=== PATIENT | male | born 1995 | race Caucasian/White ===

== ENCOUNTER 2017-11-07 00:22 | Emergency (ER) | payer OTHER ==
[~2017-11-07] VITALS: Ht 177.8 cm; Wt 91.0 kg
[2017-11-07 00:24] VITALS: BP 128/86; PULSE 88; RESP 16; TEMP 97.9; O2SAT 98
--- NOTE | 2017-11-07 00:55 | PD ---
HPI Chief Complaint: Injury Time Seen by Provider: 00:45 Travel History International Travel<30 days: No Contact w/Intl Traveler<30days: No Traveled to known affect area: No History of Present Illness HPI 22-year-old male presents to the emergency department for evaluation of acute onset left anterior hip pain. Patient states that he jumped into the back of a truck and believes he may have pulled a muscle. This happened at work yesterday. He states he is unable to work today due to the significant amount of pain, mostly with ambulation. Patient has history of hip dysplasia but reports no limitations in range of motion of the hips at this time. Pain is a 6 out of 10. Patient has had no fever or chills. No urinary symptoms. No other symptoms to report. PFSH Social History Tobacco Use: No Allergies-Medications (Allergen,Severity, Reaction): Coded Allergies: No Known Allergies (Unverified , 11/07/17) Reported Meds & Prescriptions Reported Meds & Active Scripts Active Ibuprofen 800 Mg Tab 800 Mg PO Q8H PRN Review of Systems Except as stated in HPI: all other systems reviewed are Neg Physical Exam Narrative GENERAL: Well-nourished, well-developed ill patient, ambulatory no acute distress. SKIN: Focused skin assessment warm/dry. HEAD: Normocephalic. EYES: No scleral icterus. No injection or drainage. NECK: Supple, trachea midline. No JVD or lymphadenopathy. CARDIOVASCULAR: Regular rate and rhythm without murmurs, gallops, or rubs. RESPIRATORY: Breath sounds equal bilaterally. No accessory muscle use. Abdomen: Abdomen soft, non-tender, nondistended. Positive bowel sounds. No hepato-splenomegaly, or palpable masses. No guarding. MUSCULOSKELETAL: No cyanosis, or edema. Tenderness was to palpation over the left hip flexor. Patient has full flexion-extension of the left hip. Distal pulses are palpable. Cap refill is within normal limits. BACK: Nontender without obvious deformity. No CVA tenderness. Data Data Last Documented VS Vital Signs Date Time Temp Pulse Resp B/P (MAP) Pulse Ox O2 Delivery O2 Flow Rate FiO2 11/07/17 02:55 11/07/17 01:20 Room Air 11/07/17 00:24 97.9 88 16 98 Orders Orders Ketorolac Inj (Toradol Inj) (11/07/17 01:00) Hip, Uni(Ap&Lat) W Ap Pelvis (11/07/17 ) Ed Discharge Order (11/07/17 02:31) [facility] Medical Decision Making Medical Screen Exam Complete: Yes Emergency Medical Condition: Yes Medical Record Reviewed: Yes Differential Diagnosis Muscle strain versus discogenic pain versus fracture versus contusion Narrative Course 22-year-old male presents to the emergency department for evaluation a left anterior hip pain. Physical exam and history are consistent with a hip flexor strain. X-ray imaging confirms no acute bony normality. Patient does have bilateral hip dysplasia as he is already aware of. Patient was treated for pain. Upon reassessment he does report much improvement in his symptoms. Patient is counseled on care. He agrees to return immediately to [facility] department with any acute worsening symptoms. Diagnosis Primary Impression: Strain of flexor muscle of left hip Qualified Codes: S76.012A - Strain of muscle, fascia and tendon of left hip, initial encounter Referrals: Primary Care Physician Patient Instructions: General Instructions, Muscle Strain (ED) Departure Forms: Tests/Procedures, Work Release Enter return to work date: Nov 10, 2017 Additional Instructions: Ice and/or warm received may help to alleviate symptoms Avoid overuse of the muscle Follow-up with a primary care provider Seek orthopedic evaluation if symptoms persist Return immediately with any acute worsening of symptoms Med/Other Pt SpecificInfo: Prescription(s) given Scripts Ibuprofen (Ibuprofen) 800 Mg Tab 800 MG PO Q8H Y for Pain/Inflammation, #30 TAB 0 Refills Prov: Gabby Lutz 11/07/17 Disposition: 01 DISCHARGE HOME Condition: Stable Gabby Lutz Nov 07, 2017 00:55
[2017-11-07] MEDS ORDERED: KETOROLAC TROMETHAMINE 60 MG/2 ML (IM) VIAL IM ONE (01:00)
--- NOTE | 2017-11-07 02:23 | RADRPT ---
EXAM DATE/TIME: 11/07/2017 01:52 [place] COMPARISON: No previous studies available for comparison. INDICATIONS : Patient complains of left sided hip pain after jumping into bed of truck for work last night. MEDICAL HISTORY : Right hip dysplasia. SURGICAL HISTORY : Corrective surgery for right hip dysplasia. ENCOUNTER: Initial ACUITY: 2 days PAIN SCORE: 8/10 LOCATION: Left Hip FINDINGS: 3 views of the left hip and pelvis. Bilateral femoral head deformity suggesting chronic bilateral hip dysplasia. No evidence of acute fracture. Metallic plate in the proximal right femoral shaft. CONCLUSION: No acute fracture identified. Deformity of the femoral heads suggesting bilateral hip dysplasia. Avelino Coronel MD on November 07, 2017 at 2:19 Board Certified Radiologist. This report was verified electronically.
[2017-11-07] MEDS ORDERED: IBUP1TAB7 PO (02:33)
== END 2017-11-07 03:01 | disposition home or self-care (01) ==
LOC: NEPD 00:22
DX: S76.012A Strain of muscle, fascia and tendon of left hip, initial encounter (principal); Q65.89 Other specified congenital deformities of hip; X50.9XXA Other and unspecified overexertion or strenuous movements or postures, initial encounter; Y93.39 Activity, other involving climbing, rappelling and jumping off; Y92.812 Truck as the place of occurrence of the external cause
CPT/HCPCS: 73502; 96372; 99284; J1885